=== PATIENT | female | born 1960 | race African-American/Black ===

== ENCOUNTER 2017-02-18 00:03 | Emergency (ER) | payer OTHER ==
--- NOTE | ~2017-02-18 | CR229 ---
[facility] A Service of [facility] & [facility] RADIOLOGY TEXT RESULTS PATIENT: KEENAN STAPLETON LOCATION: [facility] : 62 UNIT #: [id number] AGE: [address]: Steve Ybarra MD SEX: F ORDER DR: [id number] [facility] [address] [place], [place] [address] [id number] E MR#: [id number] Acc #: [id number] NAME: KEENAN STAPLETON : 1960 SEX: F STUDY DATE/TIME: 02/18/2017 0:29 UNIT: [facility] ROOM: STUDY DESCRIPTION: CR Shoulder Min 2 View Lt Attending Physician: Steve Ybarra M.D. Ordering Physician: Ed Doctor [id number] [facility] Primary Care Physician: Primary Care Physician No MEDICAL IMAGING REPORT This report is preliminary unless electronic signature is present EXAM Left shoulder series INDICATION Left shoulder pain today. PROCEDURE Four views of the left shoulder. COMPARISON None. FINDINGS Mild AC joint arthrosis. No fracture or dislocation. IMPRESSION 1. No acute findings. 2. Mild AC joint arthrosis. Dictated by... Delmar Singh M.D. THIS IS AN ELECTRONICALLY VERIFIED REPORT Delmar Singh M.D. at 02/18/2017 9:53 PM ADOLFO/opal TD: 02/18/2017 08:40 JOB #: [id number] MEDICAL IMAGING REPORT Page 1 of 1 COPY
[~2017-02-18 00:03] MED LIST: ALBUTEROL17 GM; BACTRIM DS TABL1 TA1 PO; FLEXERIL10 MG PO; FLONASE 0.05% N16 G1; FLONASE16 GM; IBUPROFEN800 MG PO; MOBIC PO; PREDNISONE PO; SINGULAIR; SUDAFED30 M1 PO
== END 2017-02-18 05:00 | disposition home or self-care (01) ==
LOC: CED 00:03
DX: S43.422A Sprain of left rotator cuff capsule, initial encounter (principal); X50.1XXA Overexertion from prolonged static or awkward postures, initial encounter; Y92.69 Other specified industrial and construction area as the place of occurrence of the external cause
CPT/HCPCS: 73030; 99283